=== PATIENT | female | born 1970 | race Caucasian/White ===

== ENCOUNTER 2017-09-20 20:05 | Emergency (ER) | payer MEDICAID ==
--- NOTE | 2017-09-20 20:45 | EDM.PDOC ---
ED HPI GENERAL MEDICAL PROBLEM - General Chief Complaint: Skin Complaint Stated Complaint: PT HAS RASH ON RT ARM Time Seen by Provider: 09/20/17 20:22 Source of Information: Reports: Patient History Limitations: Reports: No Limitations - History of Present Illness INITIAL COMMENTS - FREE TEXT/NARRATIVE: Presents to the emergency room with a rash on her right dorsal forearm. The patient states that she was staying at her cousin's house 3 days ago on a trip back from the [facility]. The rash started around the mid forearm and then spread up to the elbow and down into the first 2 digits of the hand. She denies any new toiletries, pets, laundry soaps, medications, OTCs or herbals, clothing items. She states she has stayed with this family numerous times and has never had troubles. No contacts with same or similar symptoms. She characterizes it as highly burning and pruritic. Nowhere else on the body. No fever or constitutional symptoms. right forearm Pain Score (Numeric/FACES): 9 - Related Data Allergies Allergy/AdvReac Type Severity Reaction Status Date / Time ciprofloxacin Allergy Rash Verified 09/20/17 20:12 Sulfa (Sulfonamide Allergy Rash Verified 09/20/17 20:12 Antibiotics) Home Meds: Home Meds Gabapentin [Neurontin] 400 mg PO BID 09/13/13 [History] Hydrocodone/Acetaminophen [Hydrocodon-Acetaminophn 10-325] 1 tab PO Q6H PRN 12/20 [History] Topiramate [Topamax] 100 mg PO BID 09/13/13 [History] traZODone 200 mg PO BEDTIME 09/13/13 [History] Albuterol Sulfate [Proair Hfa] 8.5 gm IH ASDIRECTED PRN 05/05/15 [History] Amitriptyline [Elavil] 25 mg PO BEDTIME PRN 05/05/15 [History] Clindamycin HCl 300 mg PO QID 10 Days #40 capsule 09/20/17 [Rx] Gabapentin [Gralise] 2 cap PO BEDTIME 09/20/17 [History] Past Medical History Cardiovascular History: Reports: Hypertension Respiratory History: Reports: Asthma Gastrointestinal History: Reports: GERD Musculoskeletal History: Reports: Back Pain, Chronic Other Musculoskeletal History: bilat hip surgeries and L5 fusion Neurological History: Reports: Migraines Psychiatric History: Reports: Anxiety, Depression Other Dermatologic History: sores noted to bilateral arms states from mesquito bites Social & Family History - Family History Family Medical History: Noncontributory - Tobacco Use Smoking Status *Q: Never Smoker - Recreational Drug Use Recreational Drug Use: No ED ROS GENERAL - Review of Systems Review Of Systems: ROS reveals no pertinent complaints other than HPI. ED EXAM, SKIN/RASH Exam: See Below Exam Limited By: No Limitations General Appearance: Alert, No Apparent Distress Ears: Normal External Exam Nose: Normal Inspection Throat/Mouth: Normal Inspection Head: Atraumatic, Normocephalic Neck: Normal Inspection Respiratory/Chest: No Respiratory Distress, Lungs Clear, Normal Breath Sounds Cardiovascular: Normal Peripheral Pulses, Regular Rate, Rhythm GI/Abdominal: Soft Back Exam: Normal Inspection Neurological: Alert, Oriented Psychiatric: Normal Affect, Normal Mood Skin: Warm, Dry, Intact, Normal Color, No Rash Location, Skin: Upper Extremity, Right Characteristics: Other (Deeply erythematous linear macules on a bright red base extending from the right elbow down into the first and second digits of the right hand. Warm mildly swollen and well circumscribed erythematous area.) Course - Vital Signs Last Recorded V/S: Last Vital Signs Temp 36.1 C 09/20/17 20:05 Pulse 108 H 09/20/17 20:05 Resp 18 09/20/17 20:05 BP 113/81 09/20/17 20:05 Pulse Ox 96 09/20/17 20:05 Departure - Departure Time of Disposition: 20:47 Disposition: Home, Self-Care 01 Condition: Good Clinical Impression: Cellulitis - Discharge Information Referrals: PCP,None [Primary Care Provider] - [facility] [Outside] [facility] [Outside] Additional Instructions: 1. Antibiotic 4 times daily 2. Benadryl 25 mg 1-2 tabs 3 times daily and Zantac 1 tab daily 3. OTC cortizone cream twice daily 4. Return promptly for expanding redness, fever.
[2017-09-20 21:11] VITALS: BP 110/73
== END 2017-09-20 21:15 | disposition home or self-care (01) ==
LOC: MW.ED 20:05
DX: L03.113 Cellulitis of right upper limb (principal); L03.011 Cellulitis of right finger; Z88.1 Allergy status to other antibiotic agents; Z88.2 Allergy status to sulfonamides; I10 Essential (primary) hypertension; K21.9 Gastro-esophageal reflux disease without esophagitis; Z79.899 Other long term (current) drug therapy
CPT/HCPCS: 99282

== ENCOUNTER 2017-09-24 12:24 | Emergency (ER) | payer MEDICAID ==
[2017-09-24 12:36] VITALS: BP 140/82
[2017-09-24] MEDS ORDERED: Ketorolac 60 MG/2 ML SDV IM ONE (13:24)
--- NOTE | 2017-09-24 14:33 | EDM.PDOC ---
ED HPI GENERAL MEDICAL PROBLEM - General Chief Complaint: Respiratory Problem Stated Complaint: FALL Time Seen by Provider: 09/24/17 12:33 Source of Information: Reports: Patient, Family History Limitations: Reports: No Limitations - History of Present Illness INITIAL COMMENTS - FREE TEXT/NARRATIVE: HISTORY AND PHYSICAL: []46-year-old female presenting with rib pain History of Present Illness: []Patient is here visiting from [facility] for graduation She tripped over a child's toy fell face first flat onto the floor with carpet Now continues to have pain with breathing deeply She complains of having to throw up after she eats Review of Systems: As per history of present illness and below otherwise all systems reviewed and negative. Past medical history: As per history of present illness and as reviewed below otherwise noncontributory. Surgical history: As per history of present illness and as reviewed below otherwise noncontributory. Social history: No reported history of drug or alcohol abuse. Family history: As per history of present illness and as reviewed below otherwise noncontributory. Physical exam: Alert and oriented woman laying quite still on the cart for examination HEENT: Atraumatic, normocehpalic, pupils reactive, negative for conjunctival pallor or scleral icterus, mucous membranes moist, throat clear, neck supple, nontender, trachea midline. Lungs: Clear to auscultation, breath sounds equal bilaterally, chest non tender. Heart: S1S2, regular, negative for clicks, rubs, or JVD. Abdomen: Soft, nondistended, exquisitely tender on palpation to the lower rib. Negative for masses or hepatossplenmegaly. Negative for costovertebral tenderness. Pelvis: Stable nontender. Genitourinary: Deferred. Rectal: Deferred Extremities: Atraumatic, negative for cords or calf pain. Neurovascular unremarkable. Neuro: Awake, alert, oriented. Cranial nerves II through XII unremarkable. Cerebellum unremarkable. Motor and sensory unremarkable throughout. Exam nonfocal. Results of the x-ray do not show any fractures Diagnostics: []X-ray chest Therapeutics: [] Impression: []: Contusion Plan: []Discharge to home Moist heat to this area Tylenol [id number] May try Biofreeze or similar product Definitive disposition and diagnosis as appropriate pending reevaluation and review of above. Onset: Sudden Duration: Day(s): (1) Location: Reports: Chest Middle Chest Pain Score (Numeric/FACES): 8 - Related Data Allergies Allergy/AdvReac Type Severity Reaction Status Date / Time ciprofloxacin Allergy Rash Verified 09/24/17 12:36 Sulfa (Sulfonamide Allergy Rash Verified 09/24/17 12:36 Antibiotics) Home Meds: Home Meds Gabapentin [Neurontin] 600 mg PO BID 09/13/13 [History] Hydrocodone/Acetaminophen [Hydrocodon-Acetaminophn 10-325] 0.5 tab PO Q6H PRN [History] Topiramate [Topamax] 100 mg PO BID 09/13/13 [History] traZODone 100 mg PO BEDTIME 09/13/13 [History] Albuterol Sulfate [Proair Hfa] 8.5 gm IH ASDIRECTED PRN 05/05/15 [History] Amitriptyline [Elavil] 50 mg PO BEDTIME PRN 05/05/15 [History] Aspirin 1 tab PO DAILY 09/20/17 [History] Baclofen 1 tab PO BID 09/20/17 [History] Clindamycin HCl 300 mg PO QID 10 Days #40 capsule 09/20/17 [Rx] Gabapentin [Gralise] 2 cap PO BEDTIME 09/20/17 [History] Lisinopril 1 tab PO DAILY 09/20/17 [History] Mometasone/Formoterol [Dulera 100-5 MCG] 1 puff IN ASDIRECTED 09/20/17 [History] Omeprazole 20 mg PO DAILY 09/20/17 [History] Promethazine [Phenergan] 1 tab PO ASDIRECTED 09/20/17 [History] SUMAtriptan Succinate [Imitrex] 1 tab PO ASDIRECTED PRN 09/20/17 [History] Venlafaxine [Effexor] 1 tab PO BID 09/20/17 [History] hydrOXYzine HCl [hydrOXYzine] 1 tab PO TID 09/20/17 [History] Past Medical History Cardiovascular History: Reports: Hypertension Respiratory History: Reports: Asthma Gastrointestinal History: Reports: GERD Musculoskeletal History: Reports: Back Pain, Chronic Other Musculoskeletal History: bilat hip surgeries and L5 fusion Neurological History: Reports: Migraines Psychiatric History: Reports: Anxiety, Depression Other Dermatologic History: sores noted to bilateral arms states from mesquito bites Social & Family History - Family History Family Medical History: Noncontributory - Tobacco Use Smoking Status *Q: Never Smoker - Caffeine Use Caffeine Use: Reports: Coffee, Soda - Recreational Drug Use Recreational Drug Use: No ED ROS GENERAL - Review of Systems Review Of Systems: ROS reveals no pertinent complaints other than HPI. ED EXAM, GENERAL - Physical Exam Exam: See Below (See dictation) Course - Vital Signs Last Recorded V/S: Last Vital Signs Temp 36.6 C 09/24/17 12:32 Pulse 105 H 09/24/17 12:32 Resp 22 H 09/24/17 12:32 BP 140/82 09/24/17 12:32 Pulse Ox 97 09/24/17 12:32 - Orders/Labs/Meds Orders: Active Orders 24 hr Category Date Time Status Chest 2V [CR] Stat Exams 09/24/17 12:40 Taken Meds: Medications Discontinued Medications Generic Name Dose Route Start Last Admin Trade Name Freq PRN Reason Stop Dose Admin Ketorolac Tromethamine 60 mg 09/24/17 13:24 09/24/17 13:38 Toradol IM 09/24/17 13:25 60 mg ONETIME ONE Administration Departure - Departure Time of Disposition: 14:31 Disposition: Home, Self-Care 01 Condition: Good Clinical Impression: Contusion Qualifiers: Encounter type: initial encounter Contusion area: thoracic wall - Discharge Information Referrals: PCP,None [Primary Care Provider] - Additional Instructions: The following information is given to patients seen in the emergency department who are being discharged to home. This information is to outline your options for follow-up care. We provide all patients seen in our emergency department with a follow-up referral. The need for follow-up, as well as the timing and circumstances, are variable depending upon the specifics of your emergency department visit. If you don't have a primary care physician on staff, we will provide you with a referral. We always advise you to contact your personal physician following an emergency department visit to inform them of the circumstance of the visit and for follow-up with them and/or the need for any referrals to a consulting specialist. The emergency department will also refer you to a specialist when appropriate. This referral assures that you have the opportunity for followup care with a specialist. All of these measure are taken in an effort to provide you with optimal care, which includes your followup. Under all circumstances we always encourage you to contact your private physician who remains a resource for coordinating your care. When calling for followup care, please make the office aware that this follow-up is from your recent emergency room visit. If for any reason you are refused follow-up, please contact the [facility] emergency department at and asked to speak to the emergency department charge nurse. No fractures were noted on your examination You have a contusion/muscle strain [id number] medication of Tylenol will be helpful Moist heat Try Biofreeze BenGay or similar product Follow-up with your primary care in a week - My Orders Last 24 Hours: My Active Orders 09/24/17 12:40 Chest 2V [CR] Stat - Assessment/Plan Last 24 Hours: My Active Orders 09/24/17 12:40 Chest 2V [CR] Stat
--- NOTE | 2017-09-26 10:50 | CR ---
EXAM DATE: 09/24/17 PATIENT'S AGE: 46 Patient: AIME FLOR Facility: [place], [place] Site . Site : [id number] Study: XRay Chest [id number]/[id number] 1:49:27 PM Ordering Physician: Doctor Prince Final Report: INDICATION: Shortness of breath and pain. TECHNIQUE: Two view chest. FINDINGS: The lungs are clear. The heart, mediastinum and pulmonary vessels are of normal size. There is no evidence of pleural disease. IMPRESSION: Negative chest. Dictated by Jairo Lfaleur MD @ Sep 24 2017 2:02PM (Electronic Signature) Report Signed by Proxy. VINCENZO
== END 2017-09-24 14:52 | disposition home or self-care (01) ==
LOC: MW.ED 12:24
DX: S20.219A Contusion of unspecified front wall of thorax, initial encounter (principal); F41.9 Anxiety disorder, unspecified; F32.9 Major depressive disorder, single episode, unspecified; Z88.1 Allergy status to other antibiotic agents; Z88.2 Allergy status to sulfonamides; Z79.82 Long term (current) use of aspirin; Z79.899 Other long term (current) drug therapy; I10 Essential (primary) hypertension; J45.909 Unspecified asthma, uncomplicated; K21.9 Gastro-esophageal reflux disease without esophagitis; W19.XXXA Unspecified fall, initial encounter
CPT/HCPCS: 71046; 96372; 99284; J1885